=== PATIENT | male | born 1965 | race Caucasian/White ===

== ENCOUNTER 2018-05-13 11:10 | Day surgery (SDC) | payer MEDICARE, MEDICAID ==
[2018-05-13] VITALS (7 sets, daily range): BP systolic 86–121; BP diastolic 39–74
[~2018-05-13] VITALS: Ht 165.1 cm; Wt 61.3 kg
[~2018-05-13 11:10] MED LIST: ACET-2119 GT; ATOR10TA87 GT; BENZ1TAB7 GT; CARB1TAB23 GT; CLA10T GT; CLON-528 GT; DULR RC; FLUO20SO GT; FURO10VI51 PEG; GUAI100L97 PEG; GUAR1PAC2 GT; IPRA3AMP9 NEB; LACT-193 GT; MAG355OR18 GT; MAGN-64 GT; OLAN2.5T3 GT; POLY17PO10 GT; POTA10TA36 PEG; PRIM50TA31 GT
[2018-05-13] MEDS ORDERED: iohexol 300 MG/1 ML 50ml polymer ONE ×2 (11:40→12:47)
[2018-05-13] MEDS ORDERED: PRIMIDONE GT (11:59)
[2018-05-13] MEDS ORDERED: POLY17PO10 GT (11:59)
[2018-05-13] MEDS ORDERED: FOLI0.4T2 GT (11:59)
[2018-05-13] MEDS ORDERED: OLAN5TAB26 GT (11:59)
[2018-05-13] MEDS ORDERED: FLUO20SO PO (11:59)
[2018-05-13] MEDS ORDERED: LORA-512 GT (11:59)
[2018-05-13] MEDS ORDERED: SENN-161 GT (11:59)
== END 2018-05-13 13:20 | disposition home or self-care (01) ==
LOC: SSTAY O 11:10
PROVIDERS: ATTEND Radiology Vascular & Interventional Radiology
DX: Z43.1 Encounter for attention to gastrostomy (principal); G80.8 Other cerebral palsy; F63.81 Intermittent explosive disorder; Z88.8 Allergy status to other drugs, medicaments and biological substances; Z98.890 Other specified postprocedural states; Z79.899 Other long term (current) drug therapy
CPT/HCPCS: 49450; 74018; Q9967

== ENCOUNTER 2018-07-11 15:27 | Emergency (ER) | payer MEDICARE, MEDICAID ==
[~2018-07-11] VITALS: Ht 182.9 cm; Wt 70.0 kg
[~2018-07-11 15:27] MED LIST changes: -ACET-2119 GT; -BENZ1TAB7 GT; -CLA10T GT; -FLUO20SO GT; +FLUO20SO2 PO; +FOLI0.4T2 GT; -FURO10VI51 PEG; -GUAI100L97 PEG; -GUAR1PAC2 GT; -IPRA3AMP9 NEB; -LACT-193 GT; +LORA-512 GT; -MAG355OR18 GT; -MAGN-64 GT; -OLAN2.5T3 GT; +OLAN5TAB26 GT; -POTA10TA36 PEG; -PRIM50TA31 GT; +PRIMIDONE GT; +SENN-161 GT
[2018-07-11 16:42] VITALS: BP 115/75
== END 2018-07-11 17:21 | disposition home or self-care (01) ==
LOC: ER 15:27
DX: Z43.1 Encounter for attention to gastrostomy (principal); E78.00 Pure hypercholesterolemia, unspecified; K21.9 Gastro-esophageal reflux disease without esophagitis; Z88.8 Allergy status to other drugs, medicaments and biological substances; Z79.899 Other long term (current) drug therapy
CPT/HCPCS: 43760; 99284